=== PATIENT | female | born 1950 | race Caucasian/White ===

== ENCOUNTER → 2023-10-24 12:46 | Outpatient (REF) | payer OTHER, SELFPAY ==
[2023-10-24 14:13] LABS: Potassium 5.7 mmol/L (3.5-5.1)
== END ==
LOC: REG 12:46
PROVIDERS: ATTENDING PHYSICIAN Student in an Organized Health Care Education/Training Program
DX: Z01.818 Encounter for other preprocedural examination (principal); E87.5 Hyperkalemia
CPT/HCPCS: 36415; 84132

== ENCOUNTER → 2023-10-30 13:43 | Outpatient (REF) | payer OTHER, SELFPAY ==
[2023-10-30 14:30] LABS: Potassium 5.4 mmol/L (3.5-5.1)
== END ==
LOC: REG 13:43
PROVIDERS: ATTENDING PHYSICIAN Student in an Organized Health Care Education/Training Program; FAMILY PHYSICIAN Family Medicine
DX: E87.5 Hyperkalemia (principal); Z01.818 Encounter for other preprocedural examination
CPT/HCPCS: 36415; 84132

== ENCOUNTER 2023-11-02 12:33 | Inpatient (IN) | payer OTHER, SELFPAY ==
--- NOTE | 2023-10-10 10:32 | CM ---
Addendum entered by Addie Nieves 10/27/23 09:10:
VN referral completed and sent to [facility] through [facility] for PT and SN services for anticipated start of care on 11/03. accounting practice manager to sned update and confirm discharge date after surgery.
Original Note:
Patient is scheduled for an elective R TKR on 11/02/23. Spoke with patient prior to surgery via telephone. Patient had a L TKR at in 2022. Reintroduced role of Orthopedic Navigator. Patient reports that she lives alone in a two story home. There
are three (1-1-1) steps to enter and a flight of steps to the second floor. There is a full bathroom on the entry tech. She currently functions independently. She has a cane and rolling walker. She had VN services through [facility] after her prior
TKR. PCP is Juwan Gamez.
Discussed orthopedic program and post surgical plans. Reviewed anticipated length of stay and that goal is for her to return home at discharge. Also reviewed outpatient PT. Patient is in agreement with tentative plan. She prefers to have VN services
initially and selects [facility]. Her sister will stay with her for a few days when she goes home.
Patient will complete online education.
Plan: Orthopedic Navigator will remain available to assist with the care of patient and will reassess discharge needs after surgery.
[2023-10-13 12:46] VITALS: BMI 35.4
[2023-10-13 13:21] LABS: Hematocrit 32.4 % (37.0-47.0); Mean Corpuscular Hgb 29.5 pg (27.0-31.0); Mean Corpuscular Volume 86.9 fL (81.0-99.0); Mean Platelet Volume 9.9 fL (7.4-10.4); Platelet Count 662 10^3/uL (130-400); Red Blood Cell Count 3.73 10^6/uL (4.20-5.40); Red Cell Dist. Width 16.4 % (11.5-14.5); White Blood Cell Count 8.7 10^3/uL (4.8-10.8)
[2023-10-13 13:56] LABS: Glycohemoglobin (HgbA1c) 5.6 % (4.0-5.6)
[2023-10-13 14:10] LABS: ALT (SGPT) 21 U/L (0-35); AST (SGOT) 30 U/L (14-36); Albumin 4.6 g/dl (3.5-5.0); Alkaline Phosphatase 101 U/L (38-126); Blood Urea Nitrogen 31 mg/dl (7-17); Calcium 9.5 mg/dl (8.4-10.2); Carbon Dioxide 21 mmol/L (22-30); Chloride 103 mmol/L (98-107); Estimated Creatinine Clearance 46 ml/min; Glucose 104 mg/dl (70-99); Potassium 5.6 mmol/L (3.5-5.1); Sodium 134 mmol/L (135-145); Total Bilirubin 0.3 mg/dl (0.2-1.3); eGFR > 60.00
[2023-11-02] VITALS (7 sets, daily range): BP systolic 141–174; BP diastolic 75–100; BMI 35.4
--- NOTE | 2023-11-02 12:42 | W.DS.TRANS ---
DC Summary - Executive Coordinator
-
Discharge Instructions:
Discharge Diagnosis/Procedures R TKA Dr. Spring 11/02/23
Diet As tolerated
Activity With Walker
Driving Restrictions No driving
Bathing Restrictions OK to Shower
Other Services VN,PT
Instructions:
Stand-Alone Forms: Total Hip/Knee Replacement D/C
Changes to Home Medications: Yes
Discharge Medications:
DC Medications w/original date entered in [employer]
Citracal 1 tab PO DAILY Supplement 09/05/22
cholecalciferol (vitamin D3) 50 mcg (2,000 unit) capsule (Vitamin D3) 50 mcg PO DAILY Supplement 09/05/22
guaifenesin 600 mg tablet, extended release 12 hr (Mucinex) 1,200 mg PO Q12H PRN allergies 09/05/22
levothyroxine 50 mcg capsule 50 mcg PO DAILY Thyroid 09/05/22
anagrelide 0.5 mg capsule 1 mg PO Q6H THROMBOCYTOPENIA 10/06/22
acetaminophen 650 mg tablet,extended release 1,200 mg PO Q8H 10/26/23
apixaban 5 mg tablet (Eliquis) 2.5 mg PO BID 10/26/23
hydrochlorothiazide 25 mg tablet 25 mg PO DAILY 10/26/23
mupirocin 2 % topical ointment 1 applic topical BID 10/26/23
baclofen 10 mg tablet 10 mg PO TID #0 tabs 11/02/23
dexamethasone 4 mg tablet 4 mg PO BID inflammation #6 tabs 11/02/23
docusate sodium 100 mg capsule (Colace) 100 mg PO BID stool softner #1 cap 11/02/23
gabapentin 100 mg capsule 100 mg PO TID #0 caps 11/02/23
magnesium hydroxide 400 mg/5 mL oral suspension (Milk of Magnesia) 30 ml PO HS PRN Constipation #1 mL 11/02/23
metoprolol tartrate 50 mg PO HS ##0 11/02/23
ondansetron 4 mg disintegrating tablet 4 mg PO Q6H PRN n/v #20 tabs 11/02/23
oxycodone 5 mg tablet 5 mg PO Q6H PRN 1 tab moderate pain, 2 tabs severe pain #30 tabs 11/02/23
sennosides 8.6 mg tablet (Senokot) 17.2 mg (2 x 8.6 mg) PO BID laxative #2 tabs 11/02/23
Clindamycin 300mg qid #20
Home Medication Changes
dexamethasone 4 mg tablet 4 mg PO BID inflammation #6 tabs 11/02/23�
ondansetron 4 mg disintegrating tablet 4 mg PO Q6H PRN n/v #20 tabs 11/02/23�
oxycodone 5 mg tablet 5 mg PO Q6H PRN 1 tab moderate pain, 2 tabs severe pain #30 tabs 11/02/23�
Clindamycin 300mg qid #20
Pending Results: No
[2023-11-02] MEDS: NORMOSOL-R 1000 IV ×2 (13:45→18:22)
[2023-11-02] MEDS: CELEBREX 200 MG PO (14:06)
[2023-11-02] MEDS: TYLENOL 650 MG PO ×2 (14:06→21:28)
--- NOTE | 2023-11-02 18:47 | OR.RPT ---
Operative Report
Operative Report
Orthopaedic Surgery Operative Note
DATE OF OPERATION: 11/02/2023
PREOPERATIVE DIAGNOSES: Osteoarthritis, right knee.
POSTOPERATIVE DIAGNOSES: Osteoarthritis, right knee.
OPERATION PERFORMED:
1) Right total knee arthroplasty (CPT 23997)
2) Intraosseous administration of analgesic (CPT 21379)
SURGEON: Chung Spring MD
ASSISTANTS: Faustino Okeefe PA-C who helped with patient and limb positioning and retraction
ANESTHESIA: Spinal by anesthesia plus intraoperative infusion of morphine into the tibial metaphysis by Dr. Spring
COMPLICATIONS: None.
ESTIMATED BLOOD LOSS: 30mL
DRAINS: None
TOURNIQUET TIME: 56 minutes.
IMPLANTS:
- Cassi Persona PS Femur, size 6
- Cassi Persona tibia base plate, size C
- Cassi Persona CPS articular surface, 12 mm
- All-polyethylene patellar component, size 29
- [employer] [place] bone cement
INDICATIONS: The patient presented to my office with debilitating right knee pain due to osteoarthritis. We reviewed the natural history of this problem, as well as the risks, benefits, and alternatives of various treatment options. The patient
exhausted all nonoperative treatment options and wished to proceed with knee replacement surgery. The patient understood the risks which included, but were not limited to, bleeding, infection, failure to relieve pain, more pain than preop, damage to
blood vessels and nerves, need for reoperation, mechanical failure of the implants, wound healing problems, stiffness, instability, blood clot, pulmonary embolism, myocardial infarction, pneumonia, arrhythmia, CVA, and . The patient accepted
these risks and wished to proceed. All questions were answered, and informed consent was obtained. CPS constraint was planned given the subluxation of the tibia. She had successful left TKA with me previously.
PROCEDURE IN DETAIL: The patient was identified in the preoperative holding area. The right knee was identified as the operative site. The patient was taken in the operating room and placed in a supine position on the operating table. Spinal
anesthesia was performed. IV antibiotics and tranexamic acid were administered. An SCD was placed on the left lower extremity. A well-padded tourniquet was placed on the proximal thigh. All bony prominences were well padded. The right lower
extremity was prepped and draped in the usual sterile fashion.
We performed a surgical time-out. An interarticular block was performed with local anesthetic with epinephrine. The limb was exsanguinated with an Esmarch bandage, then the tourniquet was inflated to 250 mmHg. I performed interosseous administration
of morphine-saline solution via a Jamshidi style intraosseous needle into the proximal medial tibial metaphysis as described by Aurelio Pugh MD. This was performed to aid in pain control. A midline skin incision was made followed by a medial
parapatellar arthrotomy. A subperiosteal peel was performed on the medial tibia. I excised part of the infrapatellar fat pad to improve our visualization as well as tissue over anterior femur. The patella was everted and the knee was flexed. I
excised the remnants of the anterior and posterior cruciate ligaments as well as tibial and femoral osteophytes with rongeurs.
The knee was flexed, and the extramedullary tibial cutting guide was aligned. Zapata was aligned at neutral, rotation was centered on the tibial tubercle, and coronal alignment was aligned with the mechanical axis of the tibia and center of the ankle
joint. The cut height was 10mm off the lateral tibia joint surface. The guide was secured into place. The MCL and LCL were protected. The tibia surface was cut. The cut surface was inspected after removal to ensure appropriate height and slope based
on the preoperative plan. The cut was checked with a drop poornima. It was centered nicely at the ankle.
A drill was used to open the femoral canal. The intramedullary distal femoral cutting guide was inserted into the femur. This was set at 5 degrees +0. This was secured into place with three pins. The cut level was checked with an bang wing. The
distal femur was cut through the cutting guide. The IM guide was reinserted to double check that the level of resection was flush and in appropriate alignment.
Rosedale�s line and the transepicondylar axis were marked on the femur. The femoral sizing guide was applied to the anterior femur. Pins were inserted, and the 4-in-1 cutting guide was applied and secured into place. The rotation was compared to
Piper�s line, the transepicondylar axis, and the neutral tibia cut and was found to be appropriate. The width was checked and found to be appropriate and lateralized on the femur. The anterior, posterior, and chamfur cuts were made. A lamina
consumer education specialist was used to open the flexion gap, and posterior osteophytes were removed with a curved osteotome. The remnant medial and lateral meniscus were also removed. I prophylactically cauterized the lateral geniculate arteries. A 10mm spacer block
was applied to the flexion gap and was noted to be balanced medially and laterally. The knee was extended, and the block showed symmetric to extension and flexion gaps.
The tibia was exposed and sized. Rotation was set in line with the tibial tubercle and congruent with the femur. The trial was secured into place with two pins. The trial femur was impacted into place, and a trial articular surface was placed. The
knee was taken through range of motion and noted to be stable throughout the arc of motion without gaping or excess tension. In extension, a measured resection of the patella was performed. The patella was sized, and lug holes were drilled. A trial
patella component was applied, and it was noted to track centrally throughout the arc of motion without need for further releases.
The trials were removed. The tibia keel was prepared with the punch and the drill. The bone surfaces were irrigated with sterile saline and dried. The cement was mixed in a vacuum mixer. Cement gun was used to apply cement to the tibial surface and
the undersurface of the tibial implant. Cement was pressurized into the tibial canal and tibia surface. The tibial component was impacted into place. Excess cement was removed. Cement was applied to the femoral surface and the femoral component. The
femoral component was impacted into place, and excess cement removed. A trial articular surface was inserted, and the knee was extended while the cement polymerized. The tourniquet was let down, and meticulous hemostasis was achieved. Dilute
betadine was poured into the wound and allowed to soak for 3 minutes. The knee was irrigated with copious normal saline.
Once the cement was polymerized, the trial articular surface was removed. Any excess cement was removed. The knee was trialed, and the final articular surface was selected and inserted into the tibial locking mechanism. The knee was reduced. A fresh
drape was applied to the surgical field.
The arthrotomy was closed with 0-PDS. Once closed, an interarticular block was performed with local anesthetic with epi. The deep dermal layer was closed with 2-0 PDS, and the subcuticular skin was closed with 3-0 monocryl. A Dermabond Prineo
dressing was applied to the skin in full flexion. Once this was completely dry, a sterile waterproof dressing was applied.
The anesthesia team performed an adductor canal block in the OR. The patient awoke from anesthesia without any difficulties. The sponge and instrument counts were correct x2 at the end of the case.
José Miguel Spring MD
[2023-11-02] MEDS: ROXICODONE 5 MG PO (18:49)
[2023-11-02] MEDS: DILAUDID 0.5 MG IV (21:10)
[2023-11-02] MEDS: LIORESAL PO (21:23)
[2023-11-02] MEDS: NEURONTIN PO (21:23)
[2023-11-02] MEDS: NEURONTIN 200 MG PO (21:24)
[2023-11-02] MEDS: BACTROBAN 2% OINTMENT 1 APPLIC NASAL (21:25)
[2023-11-02] MEDS: DECADRON 4 MG PO (21:26)
[2023-11-02] MEDS: COLACE 100 MG PO (21:26)
[2023-11-02] MEDS: ELIQUIS 2.5 MG PO (21:27)
[2023-11-02] MEDS: SENOKOT 17.2 MG PO (21:27)
[2023-11-02] MEDS: AGRYLIN 1 MG PO (21:52)
[2023-11-02] MEDS: LIORESAL 10 MG PO (21:53)
[2023-11-02] MEDS: LOPRESSOR 25 MG PO (21:56)
[2023-11-02] MEDS: ROXICODONE 10 MG PO (22:43)
[2023-11-03] VITALS (7 sets, daily range): BP systolic 107–150; BP diastolic 61–74; PULSE 71–100; O2SAT 92
[2023-11-03] MEDS: AGRYLIN PO (00:16)
[2023-11-03] MEDS: ANCEF 5 IV ×2 (00:17→09:53)
[2023-11-03] MEDS: TYLENOL 650 MG PO ×3 (00:22→09:50)
[2023-11-03] MEDS: AGRYLIN 1 MG PO ×2 (06:36→11:09)
[2023-11-03] MEDS: SYNTHROID 50 MCG PO (06:36)
[2023-11-03] MEDS: ROXICODONE 5 MG PO ×2 (06:42→11:11)
[2023-11-03] MEDS: DECADRON 4 MG PO (09:50)
[2023-11-03] MEDS: NEURONTIN 200 MG PO (09:51)
[2023-11-03] MEDS: ELIQUIS 2.5 MG PO (09:51)
[2023-11-03] MEDS: LIORESAL 10 MG PO (09:51)
[2023-11-03] MEDS: SENOKOT 17.2 MG PO (09:52)
[2023-11-03] MEDS: COLACE 100 MG PO (09:52)
[2023-11-03] MEDS: BACTROBAN 2% OINTMENT 1 APPLIC NASAL (09:53)
--- NOTE | 2023-11-03 11:11 | W.PN.ORTHO ---
Today's Communication / Plan
-
d/c
Assessment
.
Distal Motor Intact: Yes
Dressing:
Clean, dry and intact.
Assessment:
Dizzy/orthostasis-Midodrine x1 + IVF 250ml bolus
Hx post op provoked LLE DVT 10/2022--resolved on repeat imaging
Hx MSSA-Clinda ppx OP
Essential thrombocythemia-on Anagrelide-platelets and hgb stable
Plan
.
Surgery / Date: R CHERYL Spring 11/02/23
DVT Prophylaxis: Other (Eliquis + SCD)
Activity:
Out of bed.
PT/OT
Discharge Plan: Home w/ VN
Subjective
.
.:
Patient resting comfortably.
Vital Signs and Labs
.
Vital Signs and Labs:
Lab Results
10/13/23 12:28
10/13/23 12:28
Temp Pulse Resp BP Pulse Ox
97.6 F 71 16 136/72 93
11/03/23 07:36 11/03/23 10:08 11/03/23 07:36 11/03/23 10:08 11/03/23 10:08
Non-invasive Hgb result: 12.7
Physical Exam
-
HEENT: No pallor, cyanosis, or jaundice. Throat clear.
NECK: Supple. No JVD.
RESPIRATORY: Lungs clear to auscultation.
CVS: S1, S2 normal. RRR.� No murmur, rub or gallop.
ABDOMEN: Soft, non-tender. No distension. BS+/normal.
EXTREMITIES: strength equal, no calf pain with palpation
DOG RACES MANAGER: AOx3. No focal deficits. corsage maker grossly intact
--- NOTE | 2023-11-03 11:59 | CM ---
Addendum entered by Phyllis Herrera 11/03/23 12:25:
[facility]
Original Note:
Patient seen bedside, discussed plan for discharge. Referral previously sent to [facility], confirmed acceptance of patient, updated [facility] on patients discharge today. Patient reports her sister will be here around 1:30 p.m. to provide
transportation home. Patient reports she has all the equipment needed at home as she has had a knee replacement in the past. Patient reports her sister will be staying with her for the first few nights. IMM reviewed, signed, placed in chart. Patient
provided with copy of IMM. CM will continue to follow for all discharge planning needs.
Plan; home with [facility] and family support.
== END 2023-11-03 13:51 | disposition home health service (06) | DRG 470 ==
LOC: 2 SOUTH 12:33
PROVIDERS: ADMITTING PHYSICIAN Orthopaedic Surgery; FAMILY PHYSICIAN Family Medicine
PROC: 0SRC0J9 Replacement of Right Knee Joint with Synthetic Substitute, Cemented, Open Approach (ICD-10-PCS; 2023-11-02)
DX: M17.11 Unilateral primary osteoarthritis, right knee (principal); M81.0 Age-related osteoporosis without current pathological fracture; E03.9 Hypothyroidism, unspecified; G62.9 Polyneuropathy, unspecified; D47.3 Essential (hemorrhagic) thrombocythemia; R26.2 Difficulty in walking, not elsewhere classified; Z79.01 Long term (current) use of anticoagulants; Z91.040 Latex allergy status; Z79.890 Hormone replacement therapy; Z86.19 Personal history of other infectious and parasitic diseases; Z86.718 Personal history of other venous thrombosis and embolism; Z96.652 Presence of left artificial knee joint
CPT/HCPCS: 36415; 73560; 80053; 83036; 85027; 86850; 86900; 86901; 87070; 93005; 97116; 97162; 97166; 97535

== ENCOUNTER → 2024-04-15 15:12 | Outpatient (REF) | payer OTHER, SELFPAY | LOC: PAVMRI 15:12 | PROVIDERS: ATTENDING PHYSICIAN Orthopaedic Surgery; FAMILY PHYSICIAN Family Medicine | DX: M70.62 Trochanteric bursitis, left hip (principal); Z96.659 Presence of unspecified artificial knee joint; M70.61 Trochanteric bursitis, right hip | CPT/HCPCS: 73721 ==